=== PATIENT | male | born 1980 | race Caucasian/White ===

== ENCOUNTER 2020-10-05 01:22 | Emergency (ER) | payer OTHER ==
[~2020-10-05] VITALS: Ht 182.9 cm; Wt 108.9 kg
[~2020-10-05 01:22] MED LIST: HYDACE5 PO
[2020-10-05] MEDS ORDERED: Bactrim Ds Tab1 EACH PO (01:55)
[2020-10-05] MEDS ORDERED: CEPH500 PO (01:55)
== END 2020-10-05 02:49 | disposition home or self-care (01) ==
LOC: ER 01:22
DX: L02.414 Cutaneous abscess of left upper limb (principal); Z87.891 Personal history of nicotine dependence
CPT/HCPCS: 10061; 99283-25; A9270

== ENCOUNTER 2023-03-01 13:29 | Emergency (ER) | payer OTHER ==
[~2023-03-01] VITALS: Ht 180.3 cm; Wt 99.8 kg
[~2023-03-01 13:29] MED LIST changes: +Bactrim Ds Tab1 EACH PO; +CEPH500 PO
[2023-03-01 15:15] VITALS: BP 151/87
== END 2023-03-01 16:22 | disposition home or self-care (01) ==
LOC: ER 13:29
DX: F11.90 Opioid use, unspecified, uncomplicated (principal); F17.200 Nicotine dependence, unspecified, uncomplicated
CPT/HCPCS: 99283